=== PATIENT | male | born 1980 ===

== ENCOUNTER 2021-03-18 12:04 | Inpatient (IN) | payer MEDICAID ==
[~2021-03-18] VITALS: Ht 185.4 cm; Wt 104.2 kg
[2021-03-18] MEDS ORDERED: POLYETHYLENE GLYCOL 17 GM PACKET PO PRN (12:30)
[2021-03-18] MEDS ORDERED: ACETAMINOPHEN 325 MG TABLET PO PRN (12:30)
[2021-03-18] MEDS ORDERED: ONDANSETRON ODT 4 MG PO PRN (12:30)
[2021-03-18] MEDS ORDERED: LORazepam 1MG TABLET PO PRN (12:30)
[2021-03-18] MEDS ORDERED: BISACODYL 10 MG SUPP PR PRN (12:30)
[2021-03-18] MEDS ORDERED: PLEASE ENTER ALLERGIES MC SCH (14:30)
[2021-03-18] MEDS ORDERED: PLEASE ENTER HEIGHT AND WEIGHT MC SCH (14:30)
[2021-03-18] MEDS ORDERED: ATOM80CA PO (15:57)
[2021-03-18] MEDS ORDERED: FLUO20CA19 PO (15:57)
[2021-03-18] MEDS ORDERED: FLUO40CA9 PO (15:57)
[2021-03-18] MEDS ORDERED: LISI30TA4 PO (15:57)
[2021-03-18] MEDS ORDERED: METHYLPHENIDATE 5 MG TABLET PO SCH (16:00)
[2021-03-18 16:30] VITALS: BP 128/90
[2021-03-18] MEDS ORDERED: NICOTINE GUM 2 MG BC PRN (17:00)
[2021-03-18 18:49] VITALS: BP 145/92
[2021-03-18] MEDS: ACAMPROSATE 333 MG TABLET.DR PO SCH (20:29)
[2021-03-18] MEDS ORDERED: TRAZODONE 50MG TABLET PO SCH (21:00)
[2021-03-18 21:53] LABS: MICROSCOPIC NOT IND
[2021-03-19 06:03] LABS: CHOL/HDL RATIO 2.2; FREE T4 (FREE THYROXINE) 0.96 ng/dL (0.76-1.46); LDL/HDL RATIO 0.8 (0.5-3.0)
[2021-03-19 07:33] VITALS: BP 147/102
[2021-03-19] MEDS ORDERED: METHYLPHENIDATE 5 MG TABLET PO SCH (08:00)
[2021-03-19] MEDS: ACAMPROSATE 333 MG TABLET.DR PO SCH (09:00)
[2021-03-19] MEDS ORDERED: LISINOPRIL 10 MG TABLET PO SCH (09:00)
[2021-03-19] MEDS ORDERED: FLUOXETINE HCL 20 MG CAPSULE PO SCH ×2 (09:00)
[2021-03-19] MEDS ORDERED: NICOTINE 21 MG/24 HR PATCH.TD24 TD SCH (09:00)
[2021-03-19] MEDS ORDERED: OMNIPAQUE 350 MG/ML, 75ML BOTTLE ONE (15:20)
== END 2021-03-19 15:45 | disposition home or self-care (01) | DRG 754 ==
LOC: 3E 14:05
PROVIDERS: ADMIT Psychiatry & Neurology Psychosomatic Medicine; ATTEND Psychiatry & Neurology Psychosomatic Medicine
DX: F32.9 Major depressive disorder, single episode, unspecified (principal); F10.10 Alcohol abuse, uncomplicated; I10 Essential (primary) hypertension
CPT/HCPCS: 36415; 71045; 71260; 80061; 81003; 82140; 84439; 84443; 93005; Q9967

== ENCOUNTER 2021-03-19 16:15 | Inpatient (IN) | payer MEDICAID ==
[~2021-03-19] VITALS: Ht 185.4 cm; Wt 97.6 kg
[~2021-03-19 16:15] MED LIST: ATOM80CA PO; FLUO20CA19 PO; FLUO40CA9 PO; LISI30TA4 PO
[2021-03-19] MEDS ORDERED: ENALAPRILAT 1.25 MG/ML, 2ML IVPush PRN (17:00)
[2021-03-19] MEDS ORDERED: ONDANSETRON ODT 4 MG PO PRN (17:00)
[2021-03-19] MEDS ORDERED: ONDANSETRON 2MG/ML, 2ML IVPush PRN (17:00)
[2021-03-19] MEDS: PLEASE ENTER HEIGHT AND WEIGHT MC SCH (17:30)
[2021-03-19 21:42] VITALS: BP 154/109
[2021-03-19] MEDS: NICOTINE 14MG/24 HR PATCH.TD24 TD SCH (21:48)
[2021-03-19] MEDS: TRAZODONE 50MG TABLET PO SCH (21:48)
[2021-03-19] MEDS: GUAIFENESIN/DM 200-20MG, 10ML UDC PO PRN (22:48)
[2021-03-19 22:50] VITALS: BP 145/94
[2021-03-20] MEDS: PLEASE ENTER HEIGHT AND WEIGHT MC SCH ×3 (01:30→17:30)
[2021-03-20 02:55] VITALS: BP 138/90
[2021-03-20] MEDS: FLUOXETINE HCL 20 MG CAPSULE PO SCH (08:24)
[2021-03-20] MEDS: MULTIVITAMINS/MINERALS TABLET PO SCH (08:25)
[2021-03-20] MEDS: LISINOPRIL 10 MG TABLET PO SCH (08:25)
[2021-03-20 09:00] VITALS: BP 131/91
[2021-03-20 12:08] VITALS: BP 149/107
[2021-03-20] MEDS: NICOTINE 14MG/24 HR PATCH.TD24 TD SCH (17:05)
[2021-03-20] MEDS ORDERED: CEFDINIR 300 MG CAPSULE PO SCH (21:00)
[2021-03-20] MEDS ORDERED: DOXYCYCLINE 100MG TABLET PO SCH (21:00)
[2021-03-20 21:18] VITALS: BP 154/108
[2021-03-20] MEDS: TRAZODONE 50MG TABLET PO SCH (21:22)
[2021-03-20 21:23] VITALS: BP 151/99
[2021-03-20] MEDS: GUAIFENESIN/DM 200-20MG, 10ML UDC PO PRN (21:25)
[2021-03-20 21:34] VITALS: BP 138/94
[2021-03-21 00:42] VITALS: BP 143/91
[2021-03-21] MEDS: ACETAMINOPHEN 325 MG TABLET PO PRN ×2 (00:43→20:55)
[2021-03-21 05:06] LABS: BASOPHILS % (AUTO) 1 % (0-1); EOSINOPHILS % (AUTO) 2 % (1-7); LYMPHOCYTES % (AUTO) 11 % (22-44); MEAN CORPUSCULAR HEMOGLOBIN 34.3 pg (27.5-34.5); MEAN CORPUSCULAR HGB CONC 34.4 g/dL (33.2-36.2); MONOCYTES % (AUTO) 13 % (2-9); NEUTROPHILS % (AUTO) 74 % (42-75); PLATELET COUNT 211 x10^3/uL (130-400); RED BLOOD COUNT 4.01 x10^6/uL (4.38-5.82); RED CELL DISTRIBUTION WIDTH 14.5 % (9.4-14.8)
[2021-03-21 05:08] LABS: MD NO
[2021-03-21 05:14] LABS: ALANINE AMINOTRANSFERASE 63 U/L (12-78); ALBUMIN 2.4 g/dL (3.4-5.0); ANION GAP 5 mmol/L (5-15); CALCIUM 8.9 mg/dL (8.5-10.1); CHLORIDE 105 mmol/L (98-107)
[2021-03-21 05:19] LABS: ALKALINE PHOSPHATASE 184 U/L (45-117); BILIRUBIN,TOTAL 0.6 mg/dL (0.2-1.0); CREATININE 1.07 mg/dL (0.7-1.3); TOTAL PROTEIN 7.6 g/dL (6.4-8.2)
[2021-03-21 08:43] VITALS: BP 154/92
[2021-03-21] MEDS: DOXYCYCLINE 100MG TABLET PO SCH ×2 (08:47→20:55)
[2021-03-21] MEDS: FLUOXETINE HCL 20 MG CAPSULE PO SCH (08:47)
[2021-03-21] MEDS: LISINOPRIL 10 MG TABLET PO SCH (08:47)
[2021-03-21] MEDS: CEFDINIR 300 MG CAPSULE PO SCH ×2 (08:47→20:55)
[2021-03-21] MEDS: MULTIVITAMINS/MINERALS TABLET PO SCH (08:47)
[2021-03-21 14:41] VITALS: BP 136/84
[2021-03-21] MEDS: NICOTINE 14MG/24 HR PATCH.TD24 TD SCH (17:03)
[2021-03-21 19:55] VITALS: BP 133/98
[2021-03-21] MEDS: GUAIFENESIN/DM 200-20MG, 10ML UDC PO PRN (20:54)
[2021-03-21] MEDS: TRAZODONE 50MG TABLET PO SCH (20:54)
[2021-03-22 01:16] VITALS: BP 130/84
[2021-03-22 06:40] VITALS: BP 132/88
[2021-03-22] MEDS: CEFDINIR 300 MG CAPSULE PO SCH (10:36)
[2021-03-22] MEDS: FLUOXETINE HCL 20 MG CAPSULE PO SCH (10:37)
[2021-03-22] MEDS: MULTIVITAMINS/MINERALS TABLET PO SCH (10:37)
[2021-03-22] MEDS: LISINOPRIL 10 MG TABLET PO SCH (10:37)
[2021-03-22] MEDS: DOXYCYCLINE 100MG TABLET PO SCH (10:37)
[2021-03-22] MEDS ORDERED: DOXY100T PO (12:21)
[2021-03-22] MEDS ORDERED: CEFD300C37 PO (12:21)
[2021-03-22] MEDS ORDERED: IBUP-1222 PO (12:38)
[2021-03-22] MEDS ORDERED: KETOROLAC 30 MG/1 ML IVPush ONE (13:00)
[2021-03-22 14:10] VITALS: BP 156/90
== END 2021-03-22 14:50 | disposition home or self-care (01) | DRG 139 ==
LOC: 3N 16:15
PROVIDERS: ADMIT Hospitalist; ATTEND Hospitalist
DX: J18.8 Other pneumonia, unspecified organism (principal); R45.850 Homicidal ideations; F10.24 Alcohol dependence with alcohol-induced mood disorder; F17.210 Nicotine dependence, cigarettes, uncomplicated; F32.9 Major depressive disorder, single episode, unspecified; F98.8 Other specified behavioral and emotional disorders with onset usually occurring in childhood and adolescence; I10 Essential (primary) hypertension; M10.9 Gout, unspecified; Z59.0 Homelessness; Z82.0 Family history of epilepsy and other diseases of the nervous system; E66.9 Obesity, unspecified; Z68.28 Body mass index [BMI] 28.0-28.9, adult
CPT/HCPCS: 36415; 80053; 85025; 86635; 87015; 87070; 87116; 87205; 87206; 87305; 87449; 99285; G0378; J1885